=== PATIENT | male | born 1945 | race Caucasian/White ===

== ENCOUNTER 2019-01-25 15:08 | Inpatient (IN) | payer OTHER, BC ==
[2019-01-25 15:47] LABS: ADD MAN DIFF? NO
[2019-01-25 15:54] LABS: BASOPHILS % 0.7 % (0.0-2.0); EOSINOPHILS # 0.2 10^3/ul (0.0-0.5); EOSINOPHILS % 3.1 % (0.0-7.0); HEMATOCRIT 45.3 % (42.0-52.0); HEMOGLOBIN 15.2 g/dl (14.0-18.0); LYMPHOCYTES # 1.3 10^3/ul (0.8-2.9); LYMPHOCYTES % 22.6 % (15.0-51.0); MEAN CORPUSCULAR HEMOGLOBIN 28.8 pg (29.0-33.0); MEAN CORPUSCULAR HGB CONC 33.6 g/dl (32.0-37.0); MEAN PLATELET VOLUME 9.9 fl (7.4-10.4); MONOCYTE # 0.4 10^3/ul (0.3-0.9); MONOCYTES % 6.6 % (0.0-11.0); NEUTROPHIL # 3.8 10^3/ul (1.6-7.5); NEUTROPHILS % 66.8 % (39.0-77.0); PLATELET COUNT 256 10^3/UL (140-415); RED BLOOD COUNT 5.27 10^6/ul (4.70-6.10); RED CELL DISTRIBUTION WIDTH 12.4 % (11.5-14.5)
[2019-01-25 15:54] LABS: WHITE BLOOD COUNT 5.7 10^3/ul (4.8-10.8)
[2019-01-25] MEDS: SOD CHLORIDE 0.9% 100 ML (16:06)
[2019-01-25] MEDS: IOHEXOL 100 ML (16:06)
[2019-01-25 16:08] LABS: HEMOGLOBIN A1C 5.6 % (0-5.9)
[2019-01-25 16:10] LABS: ANION GAP 8 (5-13); BLOOD UREA NITROGEN 17 mg/dl (7-20); CALCIUM 9.2 mg/dl (8.4-10.2); CARBON DIOXIDE 30 mmol/L (21-31); CHLORIDE 101 mmol/L (97-110); CHOLESTEROL 214 mg/dl (100-200); CREATINE KINASE 106 IU/L (23-200); CREATININE 0.71 mg/dl (0.61-1.24); ETHANOL < 10.0 mg/dl (0-0); GLUCOSE 107 mg/dl (70-220); HDL CHOLESTEROL 42 mg/dl (31-75); LDL CHOLESTEROL,CALCULATED 108 mg/dl; POTASSIUM 4.1 mmol/L (3.5-5.1); SODIUM 139 mmol/L (135-144); TRIGLYCERIDES 321 mg/dl (0-149)
[2019-01-25 16:13] LABS: INR 0.92; PROTIME 12.5 Sec (11.9-14.9)
[2019-01-25 16:14] LABS: PARTIAL THROMBOPLASTIN TIME 29.2 Sec (23.0-35.0)
[2019-01-25] MEDS: ASPIRIN 325 MG TAB PO (16:17)
[2019-01-25 16:21] LABS: CK INDEX 1.5; CK-MB 1.54 ng/ml (0.0-2.4); TROPONIN-I < 0.012 ng/ml (0.000-0.120)
[2019-01-25] MEDS ORDERED: ACETAMINOPHEN 325 MG TAB PO (17:00)
[2019-01-25] MEDS ORDERED: ONDANSETRON 4 MG INJ IV (17:00)
[2019-01-25 17:14] LABS: ADD UMIC NO; UR ASCORBIC ACID NEGATIVE (NEGATIVE); UR BILIRUBIN (Dip) NEGATIVE (NEGATIVE); UR BLOOD (Dip) NEGATIVE (NEGATIVE); UR CLARITY CLEAR (CLEAR); UR COLOR STRAW (YELLOW); UR GLUCOSE (Dip) NEGATIVE (NEGATIVE); UR KETONES (Dip) NEGATIVE (NEGATIVE); UR LEUKOCYTE ESTERASE (Dip) NEGATIVE Leu/ul (NEGATIVE); UR NITRITE (Dip) NEGATIVE (NEGATIVE); UR SPECIFIC GRAVITY (Dip) 1.039 (1.003-1.030); UR TOTAL PROTEIN (Dip) NEGATIVE (NEGATIVE); UR UROBILINOGEN (Dip) NEGATIVE (NEGATIVE)
[2019-01-25 17:26] LABS: AMPHETAMINE/METHAMPHETAMINE Negative (NEGATIVE); BARBITURATES Negative (NEGATIVE); BENZODIAZEPINES Negative (NEGATIVE); CANNABINOIDS Negative (NEGATIVE); COCAINE Negative (NEGATIVE); OPIATES Negative (NEGATIVE)
[2019-01-25] MEDS: ATENOLOL 25 MG TAB PO ×2 (17:30→18:23)
[2019-01-25] MEDS: FINASTERIDE 5 MG TAB PO (18:23)
[2019-01-25] MEDS: TAMSULOSIN (SR) 0.4 MG CAP PO (22:12)
[2019-01-26] MEDS ORDERED: ACETAMINOPHEN 325 MG TAB PO
[2019-01-26] MEDS ORDERED: hydrALAzine 20 MG INJ IV
[2019-01-26] MEDS: ATENOLOL 25 MG TAB PO (08:56)
[2019-01-26] MEDS: ASPIRIN 81 MG TAB PO (08:56)
[2019-01-26] MEDS: FINASTERIDE 5 MG TAB PO (08:59)
[2019-01-26] MEDS ORDERED: ASPIRIN 81 MG TAB PO (12:00)
[2019-01-26 12:42] LABS: ERYTHROCYTE SEDIMENTATION RATE 3 mm/Hr (0-20)
[2019-01-26] MEDS ORDERED: ATORVASTATIN 40 MG TAB PO (21:00)
[2019-01-26 21:20] LABS: RAPID PLASMA REAGIN NONREACTIVE (NR)
== END 2019-01-26 18:35 | disposition home or self-care (01) | DRG 65 ==
LOC: E/R 15:08 → 6WM 16:41
DX: I63.81 Other cerebral infarction due to occlusion or stenosis of small artery (principal); I45.2 Bifascicular block; G81.91 Hemiplegia, unspecified affecting right dominant side; I10 Essential (primary) hypertension; N40.0 Benign prostatic hyperplasia without lower urinary tract symptoms; E78.5 Hyperlipidemia, unspecified; R29.701 NIHSS score 1; Z79.82 Long term (current) use of aspirin
CPT/HCPCS: 36415; 70450; 70496; 70498; 70551; 71045; 80048; 80061; 80307; 81003; 82550; 82553; 82962; 83036; 84484; 85025; 85610; 85651; 85730; 86592; 92610; 93005; 93306; 93880; 99285-25